=== PATIENT | male | born 1955 | race Caucasian/White ===

== ENCOUNTER 2018-09-12 07:35 | Day surgery (SDC) | payer SELFPAY ==
--- NOTE | 2018-09-04 03:40 | HP ---
CC: Yosef Herron MD; Kleber Chavira DO * ADMISSION HISTORY AND PHYSICAL: DATE OF ADMISSION: 09/12/18 ATTENDING SURGEON: Carl Brenner MD * (DICTATED BY KASIA RECINOS) CHIEF COMPLAINT: Cecal polyp. HISTORY OF PRESENT ILLNESS: This is a 63-year-old male who underwent routine colonoscopy with Dr. Chavira on 07/04/18. He has had previous colonoscopies with removal of benign polyps in the past; his last colonoscopy being 3 years ago. Findings on the current colonoscopy included 2 separate lesions in the colon, both were removed; one being a tubular adenoma, the other being hyperplastic polyp. In the cecum at the orifice of the appendix, was noted to be an area of edema and erythema. This was biopsied with pathology showing serrated adenomatous polyp. The patient has not had any symptoms in terms of abdominal pain, anorexia, weight loss, blood in the stools or change in the stools. He was seen in the office by Dr. Brenner on 07/19/18. Dr. Brenner has reviewed his history and findings and recommendations made for laparoscopic appendectomy (to include the cecal polyp at the orifice to the appendix) with possible partial colectomy. The patient would like to proceed as scheduled. The only bowel prep required will be clear liquids for 24 hours. He will receive standard IV prophylactic antibiotics preoperatively. PAST MEDICAL HISTORY: Hypertension, GERD, and depression as well as colon polyps as noted above. PAST SURGICAL HISTORY: His only prior surgery is sinus surgery x2 and colon polypectomies as noted above. CURRENT MEDICATIONS: 1. Amlodipine 10 mg once daily. 2. Prozac 40 mg once daily. 3. Omeprazole 20 mg once daily. 4. Triamterene/hydrochlorothiazide 37.5/25 once daily. DRUG ALLERGIES: None known (his chart history indicates sulfa allergy, though that was not confirmed on today's exam). FAMILY HISTORY: Negative for anesthesia problems, bleeding or clotting disorders. SOCIAL HISTORY: The patient lives alone. He is retired from [employer]. He is a nonsmoker. He drinks on an average 4 beers per day. He denies any other recreational drug use. REVIEW OF SYSTEMS: General: No recent constitutional symptoms or acute illnesses other than described in the HPI. HEENT: No problems reported. Cardiovascular: No chest pain or palpitations; he is treated for hypertension. Respiratory: No history of asthma, chronic cough, or shortness of breath. GI: As above per HPI. No additions. : No problems reported. Endocrine: No diabetes or thyroid dysfunction. Remainder of review of systems is negative. PHYSICAL EXAMINATION GENERAL: Well-nourished, well-developed male, in no acute distress. VITAL SIGNS: Height 66 inches, weight 160 pounds. Blood pressure 144/84, pulse 76, respirations 16. HEENT: Pupils are equal and round, reactive. EOMs intact. No conjunctival pallor or scleral icterus. Oropharynx: Mucous membranes moist. No intraoral lesions. NECK: No lymphadenopathy, thyromegaly, or masses. LUNGS: Clear to auscultation. No rales or wheezes. HEART: Regular rate and rhythm. No murmur appreciated. ABDOMEN: Soft, nontender to palpation. No palpable masses or organomegaly. GENITALIA: Not done. EXTREMITIES: No edema. RECTAL: Not done. BACK: No spinous process or CVA tenderness. NEUROLOGICAL: Grossly intact. SKIN: Warm and dry. No suspicious rashes or lesions noted. IMPRESSION: Cecal polyp. PLAN: Laparoscopic appendectomy; possible partial colectomy. KASIA RECINOS [id number]/[facility] #: [id number] MTDD
[~2018-09-12 07:35] MED LIST: Buffered Lidocaine 1% SYRIN* 1 ML/SYRINGE INTRADERM ONE; Dexamethasone IV* 4 MG/ML 1 ML (4 MG) IV SLOW PU ONE; ERTApenem 1 GM in 50 mL NS IVPB ONE; Famotidine IV* 10 MG/ML 2 ML (20 mg) IV ONE; Lactated Ringers 1000 ML Bag* 1,000 ML IV SCH
[2018-09-12] MEDS ORDERED: fentaNYL* 50 MCG/ML 2 ML VIAL (100 MCG VIAL) ONE (08:00)
[2018-09-12] MEDS ORDERED: Midazolam* 1 MG/ML 5 ML VIAL (5 MG) ONE (08:00)
[2018-09-12] MEDS ORDERED: Succinylcholine* 20 MG/ML 10 ML VIAL ONE (08:00)
[2018-09-12] MEDS ORDERED: Propofol* 10 MG/ML 20 ML BTL ONE (08:00)
[2018-09-12] MEDS ORDERED: Lidocaine 2% PF * 5 ML VIAL ONE (08:00)
[2018-09-12] MEDS ORDERED: Famotidine IV* 10 MG/ML 2 ML (20 mg) ONE (08:04)
[2018-09-12] MEDS ORDERED: Dexamethasone IV* 4 MG/ML 1 ML (4 MG) ONE (08:04)
[2018-09-12] MEDS ORDERED: Ondansetron INJ* 2 MG/ML VIAL ONE (08:23)
[2018-09-12] MEDS ORDERED: DiMENhydriNATE IV* 50 MG/ML VIAL IV PUSH PRN (09:10)
[2018-09-12] MEDS ORDERED: HYDROcodone/ACETAMIN 5-325 MG* 1 TAB PO PRN (09:10)
[2018-09-12] MEDS ORDERED: oxyCODONE/Acetamin 5/325 MG* TAB PO PRN (09:10)
[2018-09-12] MEDS ORDERED: Ketorolac INJ* 30 MG/ML 1 ML VIAL IV PRN (09:10)
[2018-09-12] MEDS ORDERED: fentaNYL* 50 MCG/ML 2 ML VIAL (100 MCG VIAL) IV PRN (09:10)
[2018-09-12] MEDS ORDERED: Naloxone* 0.4 MG/ML 1 ML VIAL IV PRN (09:10)
[2018-09-12] MEDS ORDERED: Bupivacaine 0.5% W/EPI SDV* 30 ML VIAL ONE (09:17)
[2018-09-12] MEDS ORDERED: Rocuronium* 10 MG/ML VIAL ONE (10:02)
[2018-09-12] MEDS ORDERED: Sugammadex * 200 MG/2 ML VIAL IV PUSH ONE (10:23)
--- NOTE | 2018-09-12 10:29 | BRIEFOPN ---
Brief Operative Note - Surgery Procedures: Procedures Pre-OP Diagnoses: cecal polyp Post-op Diagnosis: same Procedure: Laparoscopic partial cecectomy, appendectomy Surgeon: Jordin Asst: Cecil Presleythenikita: JANIS Oconnell EBL: minimal IVF: 1100cc crystalloid Specimen: portion of cecum with polyp and appendix Drains: none
[2018-09-12] MEDS ORDERED: HYDROcodone/ACETAMIN 5-325 MG* 1 TAB ONE (10:58)
[2018-09-12] MEDS ORDERED: Ketorolac INJ* 30 MG/ML 1 ML VIAL ONE (10:58)
[2018-09-12 11:40] VITALS: BP 137/82
--- NOTE | 2018-09-12 11:44 | OP ---
CC: Dr. Yosef Herron * DATE OF OPERATION: 09/12/18 - [facility] DATE OF : 59 SURGEON: Carl Brenner MD PATIENT SERVICES REP: Candis Jacob NP ANESTHESIOLOGIST: Dr. Oconnell. ANESTHESIA: General anesthesia. PRE-OP DIAGNOSIS: Cecal polyp. POST-OP DIAGNOSIS: Cecal polyp. OPERATIVE PROCEDURE: Laparoscopic cecectomy with polyp and appendix. ESTIMATED BLOOD LOSS: Minimal. FLUIDS: 1100 cc of crystalloid fluid given. SPECIMEN: Portion of cecum with polyp and appendix. DRAINS: None. COUNTS: Lap pad count and instrument count correct at the end of the procedure. DESCRIPTION OF PROCEDURE: The patient was identified in the preoperative area, marked. Consent was signed after discussion of the procedure. He was taken back to the operating room, placed on the operating table in supine position. Preoperative antibiotics were given. Sequential devices were placed on the bilateral lower extremities. General anesthesia was induced. The patient's abdomen was prepped and draped in the standard surgical fashion and a time-out was performed. The folds of the umbilicus were elevated anteriorly and a Veress needle was inserted into the abdominal cavity, which was then allowed to insufflate to a pressure of 50 mmHg. The patient tolerated the insufflation well. The patient did on the table and the Veress needle was removed when we reached a pressure of 50 mmHg. We waited until the patient was more anesthetized and placed a 5 mm trocar with an Optiview at the upper midline. Once this was in, we looked through the abdomen. The Veress needle had already been removed. We did not see any bleeding or enteric contents intra-abdominally and structures seemed intact. Additional 5 mm trocars were then placed at the umbilicus and at the suprapubic area. We then upsized the initial 5 mm trocar to a 12 mm trocar at the upper midline. View of the abdomen showed a normal-appearing liver. There were no lesions. There was no free fluid. Small bowel was intact and it was reflected superiorly. The patient was placed in a Trendelenburg fashion with the right side up and the terminal ileum was identified. Next, we dissected sharply through attachment of the terminal ileum to the cecal base. Once this was removed, we could see a mildly dilated appendix. I could not feel the polyp with the laparoscopic instruments. We then dissected the posterior cecal area and extended this to the lateral sidewall. This was a clear view and we had a good 2 cm distance from the base of the appendix dissected. Next, we took the mesentery of the appendix with a LigaSure device, reviewed our area of planned staple line. It appeared appropriate, and a 60 mm purple KULDEEP stapler was fired across this. It made a continuous cut and the specimen was placed in the endoscopic retrieval bag and brought out through the upper most port site. On the back table, I opened this up with staple line. We were able to invert the portion of the appendix and cecum out through this small incision and could see a polyp. At this point, we passed it off as specimen, returned to the surgery site. Review of it showed no bleeding or enteric contents. Review of the abdomen showed no other identifiable lesions. The abdomen was allowed to collapse. Trocars were removed under direct vision, and all three skin incisions were reapproximated with 4-0 Monocryl subcuticular sutures. The patient was woken up in the OR and transferred to the PACU. [id number]/[facility] #: [id number] MTDD
== END 2018-09-12 11:41 | disposition home or self-care (01) ==
LOC: OR 07:35
PROVIDERS: ATTEND Surgery
DX: D12.0 Benign neoplasm of cecum (principal); I10 Essential (primary) hypertension; K21.9 Gastro-esophageal reflux disease without esophagitis
CPT/HCPCS: C1776; J0330; J1100; J1335; J1885; J2250; J2405; J2704; J3010